=== PATIENT | male | born 1985 | race Caucasian/White ===

== ENCOUNTER 2022-10-21 19:03 | Inpatient (IN) | payer OTHER ==
[2022-10-21 21:48] VITALS: BMI 35.6
[2022-10-21] MEDS ORDERED: MAG HYDROX/AL HYDROX/SIMETH 30 ML UNIT-DOSE CUP PO PRN (22:35)
[2022-10-21] MEDS ORDERED: IBUPROFEN 600 MG TABLET (FP) PO PRN (22:35)
[2022-10-21] MEDS ORDERED: MAGNESIUM HYDROX 2400MG/30ML ORAL SUSPENSION 30 ML CUP PO PRN (22:35)
[2022-10-21] MEDS ORDERED: BENZONATATE 200 MG CAPSULE PO PRN (22:35)
[2022-10-21] MEDS ORDERED: POLYETHYLENE GLYCOL (HEALTHYLAX) 3350 17 GM PACKET PO PRN (22:35)
[2022-10-21] MEDS ORDERED: BISMUTH SUBSALICYLATE 524 MG/30 ML PO PRN (22:35)
[2022-10-21] MEDS ORDERED: BENZOCAINE/MENTHOL (CHLORASEPTIC ) LOZENGE MM PRN (22:35)
[2022-10-21] MEDS ORDERED: ACETAMINOPHEN 325 MG TABLET (FP) PO PRN (22:35)
[2022-10-21] MEDS ORDERED: IBUPROFEN 400 MG TABLET (FP) PO PRN (22:35)
[2022-10-21] MEDS ORDERED: P-EPHED 60MG/TRIPROLIDI 2.5MG TABLET PO PRN (22:35)
[2022-10-21] MEDS ORDERED: MELATONIN 5 MG TABLETS PO PRN (22:35)
[2022-10-21] MEDS ORDERED: DICYCLOMINE HCL 10 MG CAPSULE PO PRN (22:35)
[2022-10-21] MEDS ORDERED: ONDANSETRON *ODT* 4 MG TABLET SL PRN (22:35)
[2022-10-21] MEDS ORDERED: LOPERAMIDE HCL 2 MG CAPSULE PO PRN (22:35)
[2022-10-21] MEDS ORDERED: guaiFENesin 600 MG TABLET.ER (FP) PO PRN (22:35)
[2022-10-21] MEDS ORDERED: chlordiazePOXIDE HCL 25 MG CAPSULE PO PRN (22:39)
[2022-10-22] MEDS: INSULIN SLIDING SCALE (NOVOLOG) 1 VIAL SQ SCH ×4 (02:15→17:41)
[2022-10-22] MEDS: chlordiazePOXIDE HCL 25 MG CAPSULE PO SCH ×4 (02:16→17:41)
[2022-10-22] MEDS ORDERED: cloNIDine HCL 0.1 MG TABLET PO ONE (06:37)
[2022-10-22 06:39] VITALS: RESP 18
[2022-10-22] MEDS ORDERED: PRENATAL VITAMINS W/ FOLIC ACID TABLET (FP) PO SCH (10:00)
[2022-10-22] MEDS ORDERED: METHOCARBAMOL 500 MG TABLET PO PRN (12:16)
[2022-10-22 12:30] LABS: HEMATOCRIT 35.2 % (35.4-49); MCH 29.5 pg (25.7-33.7); MCHC 34.2 g/dl (32.0-35.9); MEAN CELL VOLUME 86.4 fl (80-96); MEAN PLT VOLUME 8.9 fl (7.5-11.1); PLATELET COUNT 152 10^3/uL (134-434); RBC 4.08 M/mm3 (4.00-5.60); RDW 16.7 % (11.9-15.9); WHITE BLOOD COUNT 3.7 K/mm3 (4.0-10.0)
[2022-10-22 12:34] LABS: ALBUMIN 3.1 g/dl (3.4-5.0); BLOOD UREA NITROGEN 7.1 mg/dL (7-18)
[2022-10-22 12:36] LABS: CALCIUM 8.4 mg/dL (8.5-10.1)
[2022-10-22 12:37] LABS: CREATININE 0.9 mg/dL (0.55-1.3)
[2022-10-22 12:39] LABS: TOT PROT 6.9 g/dl (6.4-8.2)
[2022-10-22 12:42] LABS: BILIRUBIN,TOTAL 0.6 mg/dL (0.2-1)
[2022-10-22] MEDS ORDERED: METHOCARBAMOL 500 MG TABLET PO SCH (14:00)
[2022-10-22 17:01] VITALS: BP 143/86; PULSE 84; TEMP 97.5
[2022-10-22] MEDS ORDERED: THIAMINE HCL 100 MG TABLET (FP) PO SCH (22:00)
[2022-10-23] MEDS ORDERED: chlordiazePOXIDE HCL 25 MG CAPSULE PO SCH (05:00)
[2022-10-24] MEDS ORDERED: chlordiazePOXIDE HCL 10 MG CAPSULE PO PRN
[2022-10-24] MEDS ORDERED: chlordiazePOXIDE HCL 10 MG CAPSULE PO SCH (05:00)
[2022-10-25] MEDS ORDERED: chlordiazePOXIDE HCL 10 MG CAPSULE PO SCH (05:00)
[2022-10-26] MEDS ORDERED: chlordiazePOXIDE HCL 10 MG CAPSULE PO ONE (05:00)
== END 2022-10-22 18:50 | disposition left against medical advice (07) | DRG 770 ==
LOC: YASAS 19:03 → Y3N 23:34
PROVIDERS: ADMIT Allergy & Immunology; ATTEND Surgery
PROC: HZ2ZZZZ Detoxification Services for Substance Abuse Treatment (ICD-10-PCS; principal; 2022-10-21)
DX: F10.230 Alcohol dependence with withdrawal, uncomplicated (principal); I10 Essential (primary) hypertension
CPT/HCPCS: 36415; 80053; 82962; 85027; 86780

== ENCOUNTER 2024-03-05 11:03 | Inpatient (IN) | payer OTHER ==
[2024-03-05 11:56] VITALS: BMI 26.2
[2024-03-05] MEDS ORDERED: chlordiazePOXIDE HCL 25 MG CAPSULE PO PRN (12:23)
[2024-03-05] MEDS ORDERED: ACETAMINOPHEN 325 MG TABLET (FP) PO PRN (12:25)
[2024-03-05] MEDS ORDERED: guaiFENesin 600 MG TABLET.ER (FP) PO PRN (12:25)
[2024-03-05] MEDS ORDERED: IBUPROFEN 600 MG TABLET (FP) PO PRN (12:25)
[2024-03-05] MEDS ORDERED: POLYETHYLENE GLYCOL (HEALTHYLAX) 3350 17 GM PACKET PO PRN (12:25)
[2024-03-05] MEDS ORDERED: BISMUTH SUBSALICYLATE 524 MG/30 ML PO PRN (12:25)
[2024-03-05] MEDS ORDERED: MAG HYDROX/AL HYDROX/SIMETH 30 ML UNIT-DOSE CUP PO PRN (12:25)
[2024-03-05] MEDS ORDERED: IBUPROFEN 400 MG TABLET (FP) PO PRN (12:25)
[2024-03-05] MEDS ORDERED: MAGNESIUM HYDROX 2400MG/30ML ORAL SUSPENSION 30 ML CUP PO PRN (12:25)
[2024-03-05] MEDS ORDERED: ONDANSETRON *ODT* 4 MG TABLET SL PRN (12:25)
[2024-03-05] MEDS ORDERED: BENZONATATE 200 MG CAPSULE PO PRN (12:25)
[2024-03-05] MEDS ORDERED: DICYCLOMINE HCL 10 MG CAPSULE PO PRN (12:25)
[2024-03-05] MEDS ORDERED: LOPERAMIDE HCL 2 MG CAPSULE PO PRN (12:25)
[2024-03-05] MEDS ORDERED: BENZOCAINE/MENTHOL (CHLORASEPTIC ) LOZENGE MM PRN (12:25)
[2024-03-05] MEDS ORDERED: METOPROLOL TARTRATE 25 MG TABLET (FP) ONE (13:00)
[2024-03-05] MEDS: METOPROLOL TARTRATE 25 MG TABLET (FP) PO ONE (13:05)
[2024-03-05] MEDS: chlordiazePOXIDE HCL 25 MG CAPSULE PO SCH (17:30)
[2024-03-05] MEDS ORDERED: levETIRAcetam 500 MG TABLET (FP) PO SCH (22:00)
[2024-03-05] MEDS: THIAMINE 100 MG TABLET PO SCH (22:30)
[2024-03-05] MEDS: ATORVASTATIN CA 40 MG TABLET (FP) PO SCH (22:30)
[2024-03-05] MEDS: MELATONIN 5 MG TABLETS PO SCH (22:30)
[2024-03-06 06:32] VITALS: RESP 16
[2024-03-06 09:04] VITALS: BP 148/107; PULSE 81; TEMP 97.1
[2024-03-06] MEDS: CHOLECALCIFEROL (VIT D3) 1,000 UNIT (25 MCG) TABLET PO SCH (09:41)
[2024-03-06] MEDS: METHOCARBAMOL 500 MG TABLET PO PRN (09:41)
[2024-03-06] MEDS: PRENATAL VITAMINS W/ FOLIC ACID TABLET (FP) PO SCH (09:41)
[2024-03-06] MEDS: LOSARTAN POTASSIUM 25 MG TABLET PO SCH (09:41)
[2024-03-06] MEDS: FOLIC ACID 1 MG TABLET (FP) PO SCH (09:41)
[2024-03-06 11:43] LABS: HEMATOCRIT 37.5 % (35.4-49); HEMOGLOBIN 12.6 GM/dL (11.7-16.9); MCH 28.9 pg (25.7-33.7); MCHC 33.7 g/dl (32.0-35.9); MEAN CELL VOLUME 85.9 fl (80-96); PLATELET COUNT 212 10^3/uL (134-434); RBC 4.36 M/mm3 (4.00-5.60); RDW 16.8 % (11.9-15.9); WHITE BLOOD COUNT 4.1 K/mm3 (4.0-10.0)
[2024-03-06 11:46] LABS: POTASSIUM 3.8 mmol/L (3.5-5.1)
[2024-03-06 11:48] LABS: ALBUMIN 3.3 g/dl (3.4-5.0)
[2024-03-06 11:49] LABS: BLOOD UREA NITROGEN 7.5 mg/dL (7-18)
[2024-03-06 11:53] LABS: BILIRUBIN,TOTAL 0.6 mg/dL (0.2-1); TOT PROT 6.9 g/dl (6.4-8.2)
[2024-03-07] MEDS ORDERED: chlordiazePOXIDE HCL 25 MG CAPSULE PO SCH (05:00)
[2024-03-08] MEDS ORDERED: chlordiazePOXIDE HCL 10 MG CAPSULE PO PRN
[2024-03-08] MEDS ORDERED: chlordiazePOXIDE HCL 10 MG CAPSULE PO SCH (05:00)
[2024-03-09] MEDS ORDERED: chlordiazePOXIDE HCL 10 MG CAPSULE PO SCH (05:00)
[2024-03-10] MEDS ORDERED: chlordiazePOXIDE HCL 10 MG CAPSULE PO ONE (05:00)
== END 2024-03-06 11:20 | disposition left against medical advice (07) | DRG 770 ==
LOC: YASAS 11:03 → Y6N 12:39
PROVIDERS: ADMIT Allergy & Immunology; ATTEND Surgery
PROC: HZ2ZZZZ Detoxification Services for Substance Abuse Treatment (ICD-10-PCS; principal; 2024-03-05)
DX: F10.230 Alcohol dependence with withdrawal, uncomplicated (principal); F10.220 Alcohol dependence with intoxication, uncomplicated; I10 Essential (primary) hypertension; E11.9 Type 2 diabetes mellitus without complications; R00.0 Tachycardia, unspecified; Z79.84 Long term (current) use of oral hypoglycemic drugs; Z59.02 Unsheltered homelessness
CPT/HCPCS: 36415; 80053; 80305; 80307; 82962; 85027; 86780; 93005; 93010

== ENCOUNTER 2024-10-11 20:35 | Inpatient (IN) | payer OTHER ==
[2024-10-11 21:11] VITALS: BMI 34.4
[2024-10-11] MEDS ORDERED: ONDANSETRON *ODT* 4 MG TABLET SL PRN (21:57)
[2024-10-11] MEDS ORDERED: IBUPROFEN 600 MG TABLET (FP) PO PRN (21:57)
[2024-10-11] MEDS ORDERED: POLYETHYLENE GLYCOL (HEALTHYLAX) 3350 17 GM PACKET PO PRN (21:57)
[2024-10-11] MEDS ORDERED: MAGNESIUM HYDROX 2400MG/30ML ORAL SUSPENSION 30 ML CUP PO PRN (21:57)
[2024-10-11] MEDS ORDERED: guaiFENesin 600 MG TABLET.ER (FP) PO PRN (21:57)
[2024-10-11] MEDS ORDERED: DICYCLOMINE HCL 10 MG CAPSULE PO PRN (21:57)
[2024-10-11] MEDS ORDERED: BENZONATATE 200 MG CAPSULE PO PRN (21:57)
[2024-10-11] MEDS ORDERED: LOPERAMIDE HCL 2 MG CAPSULE PO PRN (21:57)
[2024-10-11] MEDS ORDERED: MAG HYDROX/AL HYDROX/SIMETH 30 ML UNIT-DOSE CUP PO PRN (21:57)
[2024-10-11] MEDS ORDERED: BENZOCAINE/MENTHOL (CHLORASEPTIC ) LOZENGE MM PRN (21:57)
[2024-10-11] MEDS ORDERED: BISMUTH SUBSALICYLATE 524 MG/30 ML PO PRN (21:57)
[2024-10-11] MEDS ORDERED: IBUPROFEN 400 MG TABLET (FP) PO PRN (21:57)
[2024-10-11] MEDS ORDERED: NALOXONE (NARCAN) HCL 4 MG/0.1 ML SPRAY NS PRN (21:57)
[2024-10-11] MEDS ORDERED: MELATONIN 5 MG TABLETS ONE (23:27)
[2024-10-11] MEDS: MELATONIN 5 MG TABLETS PO SCH (23:31)
[2024-10-11] MEDS: THIAMINE 100 MG TABLET PO SCH (23:32)
[2024-10-12] MEDS ORDERED: chlordiazePOXIDE HCL 25 MG CAPSULE PO PRN (00:07)
[2024-10-12] MEDS ORDERED: chlordiazePOXIDE HCL 25 MG CAPSULE ONE (00:27)
[2024-10-12] MEDS: chlordiazePOXIDE HCL 25 MG CAPSULE PO ONE (00:40)
[2024-10-12] MEDS: chlordiazePOXIDE HCL 25 MG CAPSULE PO SCH (05:33)
[2024-10-12] MEDS: metFORMIN HCL 500 MG TABLET (FP) PO SCH (07:59)
[2024-10-12] MEDS: metoPROLOL SUCCINATE 25 MG TAB.SR.24H (FP) PO SCH (10:27)
[2024-10-12] MEDS: PRENATAL VITAMINS W/ FOLIC ACID TABLET (FP) PO SCH (10:27)
[2024-10-12] MEDS: FAMOTIDINE 20 MG TABLET PO SCH (10:27)
[2024-10-12] MEDS: levETIRAcetam 500 MG TABLET (FP) PO SCH (10:27)
[2024-10-12] MEDS: LOSARTAN POTASSIUM 25 MG TABLET PO SCH (10:27)
[2024-10-12] MEDS: APIXABAN 5 MG TABLET PO SCH (10:27)
[2024-10-12] MEDS: amLODIPine BESYLATE 10 MG TABLET (FP) PO SCH (10:27)
[2024-10-12] MEDS: GABAPENTIN 100 MG CAPSULE PO SCH (13:20)
[2024-10-12 15:26] LABS: HEMATOCRIT 36.2 % (35.4-49); MCHC 33.1 g/dl (32.0-35.9); MEAN CELL VOLUME 90.6 fl (80-96); MEAN PLT VOLUME 9.1 fl (7.5-11.1); PLATELET COUNT 83 10^3/uL (134-434); RBC 3.99 M/mm3 (4.00-5.60); RDW 15.7 % (11.9-15.9); WHITE BLOOD COUNT 3.4 K/mm3 (4.0-10.0)
[2024-10-12 15:27] LABS: CHLORIDE 98 mmol/L (98-107); POTASSIUM 3.6 mmol/L (3.5-5.1); SODIUM 137 mmol/L (136-145)
[2024-10-12 15:30] LABS: CALCIUM 8.8 mg/dL (8.5-10.1)
[2024-10-12 15:31] LABS: ALBUMIN 3.3 g/dl (3.4-5.0); ANION GAP 6 mmol/L (4-13); BLOOD UREA NITROGEN 6.4 mg/dL (7-18); CO2 33 mmol/L (21-32); GLUCOSE,RANDOM 154 mg/dL (74-106)
[2024-10-12 15:34] LABS: SGOT/AST 87 U/L (15-37); SGPT/ALT 65 U/L (13-61)
[2024-10-12 15:35] LABS: BILIRUBIN,TOTAL 0.9 mg/dL (0.2-1)
[2024-10-12 15:36] LABS: TOT PROT 6.6 g/dl (6.4-8.2)
[2024-10-12 15:42] LABS: ALK PHOS 109 U/L (45-117)
[2024-10-12] MEDS: ATORVASTATIN CA 40 MG TABLET (FP) PO SCH (22:44)
[2024-10-13] MEDS: chlordiazePOXIDE HCL 25 MG CAPSULE PO SCH (05:35)
[2024-10-13] MEDS: hydrOXYzine PAMOATE 25 MG CAPSULE (FP) PO PRN (17:48)
[2024-10-13 21:32] VITALS: RESP 18
[2024-10-13] MEDS: METHOCARBAMOL 500 MG TABLET PO PRN (22:26)
[2024-10-14] MEDS ORDERED: chlordiazePOXIDE HCL 10 MG CAPSULE PO PRN
[2024-10-14] MEDS: chlordiazePOXIDE HCL 10 MG CAPSULE PO SCH (05:44)
[2024-10-14] MEDS: metoPROLOL SUCCINATE 25 MG TAB.SR.24H (FP) PO SCH (10:39)
[2024-10-15] MEDS: chlordiazePOXIDE HCL 10 MG CAPSULE PO SCH (05:54)
[2024-10-15 21:06] VITALS: TEMP 97.7
[2024-10-16] MEDS: chlordiazePOXIDE HCL 10 MG CAPSULE PO ONE (05:56)
[2024-10-16] MEDS: ACETAMINOPHEN 325 MG TABLET (FP) PO PRN (05:57)
[2024-10-16 09:03] VITALS: BP 129/76; PULSE 84
== END 2024-10-16 10:08 | disposition home or self-care (01) | DRG 775 ==
LOC: YASAS 20:35 → Y6N 23:37
PROVIDERS: ADMIT Allergy & Immunology; ATTEND Allergy & Immunology
PROC: HZ2ZZZZ Detoxification Services for Substance Abuse Treatment (ICD-10-PCS; principal; 2024-10-11)
DX: F10.230 Alcohol dependence with withdrawal, uncomplicated (principal); I48.20 Chronic atrial fibrillation, unspecified; Z79.01 Long term (current) use of anticoagulants; I10 Essential (primary) hypertension; E78.5 Hyperlipidemia, unspecified; E11.9 Type 2 diabetes mellitus without complications; Z79.84 Long term (current) use of oral hypoglycemic drugs; R56.9 Unspecified convulsions; Z86.69 Personal history of other diseases of the nervous system and sense organs; Z59.00 Homelessness unspecified
CPT/HCPCS: 36415; 80053; 80305; 80307; 82962; 83036; 85027; 86780; 93005; 93010